=== PATIENT | male | born 1970 | race American Indian/Alaskan Native ===

== ENCOUNTER 2017-08-16 11:42 | Emergency (ER) | payer BC ==
[2017-08-16 12:02] VITALS: BP 151/89
--- NOTE | 2017-08-16 12:31 | Emergency Department Report ---
ED Lower Extremity HPI - General Chief Complaint: Extremity Injury, Lower Stated Complaint: LEFT KNEE PAIN Time Seen by Provider: 08/16/17 12:20 Source: EMS Mode of arrival: Stretcher Limitations: No Limitations - History of Present Illness Initial Comments: Pt was at [employer] lifting when his L knee suddenly gave out. Denies distal numbness. Complaint: knee injury -: Sudden, hour(s) (1) Injury: Knee: Left Type of Injury: other Place: SN[facility] Severity: moderate Improves With: nothing Worsens With: nothing Context: other Associated Symptoms: snap/pop sensation, swelling, unable to bear weight Treatments Prior to Arrival: splint - Related Data Previous Rx's Medication Instructions Recorded Last Taken Type HYDROcodone/APAP 7.5-325 [[place] 1 each PO Q6HR PRN #15 tablet 08/16/17 Unknown Rx 7.5/325] Ibuprofen [Motrin] 800 mg PO Q8HR PRN #21 tablet 08/16/17 Unknown Rx ED Review of Systems ROS: Stated complaint: LEFT KNEE PAIN Other details as noted in HPI Comment: All other systems reviewed and negative Constitutional: denies: chills, fever Eyes: denies: eye pain, eye discharge, vision change ENT: denies: ear pain, throat pain Respiratory: denies: cough, shortness of breath, wheezing Cardiovascular: denies: chest pain, palpitations Endocrine: no symptoms reported Gastrointestinal: denies: abdominal pain, nausea, diarrhea Genitourinary: denies: urgency, dysuria Musculoskeletal: as per HPI. denies: back pain, joint swelling, arthralgia Skin: denies: rash, lesions Neurological: denies: headache, weakness, paresthesias Psychiatric: denies: anxiety, depression Hematological/Lymphatic: denies: easy bleeding, easy bruising ED Past Medical Hx - Past Medical History Previous Medical History?: No - Surgical History Past Surgical History?: No - Social History Smoking Status: Never Smoker Substance Use Type: None - Medications Home Medications: Home Medications Medication Instructions Recorded Confirmed Last Taken Type HYDROcodone/APAP 7.5-325 [[place] 1 each PO Q6HR PRN #15 tablet 08/16/17 Unknown Rx 7.5/325] Ibuprofen [Motrin] 800 mg PO Q8HR PRN #21 tablet 08/16/17 Unknown Rx ED Physical Exam - General Limitations: No Limitations General appearance: alert, in no apparent distress - Head Head exam: Present: atraumatic, normocephalic - Eye Eye exam: Present: normal appearance - ENT ENT exam: Present: mucous membranes moist - Neck Neck exam: Present: normal inspection - Respiratory Respiratory exam: Present: normal lung sounds bilaterally. Absent: respiratory distress - Cardiovascular Cardiovascular Exam: Present: regular rate, normal rhythm. Absent: systolic murmur, diastolic murmur, rubs, gallop - GI/Abdominal GI/Abdominal exam: Present: soft, normal bowel sounds - Rectal Rectal exam: Present: deferred - Extremities Exam Extremities exam: Present: other (There is swelling and significantly reduced ROM to the L knee. patella is high riding and defect is felt inexpected location of patellar tendon suggestive of complete patellar tendon rupture. Distal CMS is intact. ) - Back Exam Back exam: Present: normal inspection - Neurological Exam Neurological exam: Present: alert, oriented X3 - Psychiatric Psychiatric exam: Present: normal affect, normal mood - Skin Skin exam: Present: warm, dry, intact, normal color. Absent: rash ED Course Vital Signs 08/16/17 12:01 Temperature 99.2 F Pulse Rate 100 H Respiratory 18 Rate Blood Pressure 151/89 [Left] O2 Sat by Pulse 100 Oximetry - Reevaluation(s) Reevaluation #1: 08/16/17 13:38 Pt is in NAD and stable for d/c. ED Lower Extremity MDM - Radiology Data Radiology results: report reviewed, image reviewed c/w patellar tendon rupture - Medical Decision Making Pt with exam and imaging c/w patellar tendon rupture. Immobilization, pain control, non weight bearing and ortho follow up in 2-3 days. - Differential Diagnosis patellar tendon rupture, fx Critical care attestation.: If time is entered above; I have spent that time in minutes in the direct care of this critically ill patient, excluding procedure time. ED Disposition Clinical Impression: Patellar tendon rupture Qualifiers: Encounter type: initial encounter Laterality: left Qualified Code(s): S86.812A - Strain of other muscle(s) and tendon(s) at lower leg level, left leg, initial encounter Disposition: TO HOME OR SELFCARE Is pt being admited?: No Condition: Good Instructions: Patella Tendon Repair (GEN), Knee Immobilizer (ED) Prescriptions: HYDROcodone/APAP 7.5-325 [[place] 7.5/325] 1 each PO Q6HR PRN #15 tablet PRN Reason: Pain Ibuprofen [Motrin] 800 mg PO Q8HR PRN #21 tablet PRN Reason: Pain Referrals: ERICA RAMÍREZ MD [Staff Physician] - 2-3 Days Time of Disposition: 13:40
--- NOTE | 2017-08-16 12:57 | XRay Report ---
Left knee 3 views: History: There is moderate joint effusion noted. Arthritic changes are noted in the medial and patellofemoral compartment. High position of patella probably suggestive of tear of patellar tendon. Impression: Findings as detailed above. If clinically indicated MRI scan advised.
== END 2017-08-16 14:57 | disposition home or self-care (01) ==
LOC: ED 11:42
DX: S76.912A Strain of unspecified muscles, fascia and tendons at thigh level, left thigh, initial encounter (principal); X58.XXXA Exposure to other specified factors, initial encounter; Y93.89 Activity, other specified; Y92.89 Other specified places as the place of occurrence of the external cause; Y99.8 Other external cause status
CPT/HCPCS: 99283